=== PATIENT | female | born 1935 | race Caucasian/White ===

== ENCOUNTER 2021-02-05 20:37 | Emergency (ER) | payer MEDICARE ==
[2021-02-06 02:21] LABS: HEMOGLOBIN 15.3 gm/dl (12.3-15.3); RED BLOOD COUNT 4.71 M/UL (4.00-5.10); WHITE BLOOD COUNT 16.1 K/UL (4.5-11.0)
[2021-02-06 02:44] LABS: BUN/CREATININE RATIO 21 (0-10)
== END 2021-02-06 05:35 | disposition home or self-care (01) ==
LOC: ER1 20:37
PROVIDERS: Family Medicine
DX: E87.1 Hypo-osmolality and hyponatremia (principal); E11.9 Type 2 diabetes mellitus without complications; I10 Essential (primary) hypertension; Z88.2 Allergy status to sulfonamides; Z88.5 Allergy status to narcotic agent
CPT/HCPCS: 71046; 80053; 82550; 82553; 82962; 83874; 84484; 85025; 93005; 99285

== ENCOUNTER 2021-02-08 17:36 | Emergency (ER) | payer MEDICARE ==
[2021-02-08 19:13] LABS: HEMOGLOBIN 14.2 gm/dl (12.3-15.3); RED BLOOD COUNT 4.41 M/UL (4.00-5.10); WHITE BLOOD COUNT 12.5 K/UL (4.5-11.0)
[2021-02-08 19:32] LABS: BUN/CREATININE RATIO 33 (0-10)
== END 2021-02-08 20:14 | disposition home or self-care (01) ==
LOC: ER1 17:36
PROVIDERS: Physician Assistant
DX: I10 Essential (primary) hypertension (principal); E11.9 Type 2 diabetes mellitus without complications; E87.1 Hypo-osmolality and hyponatremia; Z88.5 Allergy status to narcotic agent; Z88.2 Allergy status to sulfonamides; Z88.8 Allergy status to other drugs, medicaments and biological substances; Z88.1 Allergy status to other antibiotic agents
CPT/HCPCS: 71045; 80053; 82550; 82553; 83874; 84484; 85025; 85610; 85730; 93005; 99284

== ENCOUNTER → 2021-02-13 | Outpatient (CLI) | payer MEDICARE | LOC: LAB 11:17 | PROVIDERS: Internal Medicine | DX: E87.1 Hypo-osmolality and hyponatremia (principal); I10 Essential (primary) hypertension; Z79.899 Other long term (current) drug therapy | CPT/HCPCS: 36415; 80048 ==

== ENCOUNTER → 2021-02-15 | Outpatient (CLI) | payer MEDICARE | LOC: LAB 16:16 | PROVIDERS: Internal Medicine | DX: E87.1 Hypo-osmolality and hyponatremia (principal) | CPT/HCPCS: 36415; 80048 ==

== ENCOUNTER → 2021-06-25 | Outpatient (CLI) | payer MEDICARE ==
[~2021-06-25] MED LIST: AMLODIPINE BESY10 MG PO; ATENOLOL50 MG PO; DECADRON6 MG PO; HYDROCHLOROTH12.5 MG PO; INSULIN ISOPHANE SQ; LANTUS INS100 UTS/M1 SQ; LEVOFLOXACIN500 MG PO; LOSARTAN POTAS100 MG PO; MEDROL4 MG PO; PRAVASTATIN SOD40 MG PO; TYLENOL EXTRA500 MG PO; [UNRECOGNIZED DRUG - OTHER] SQ
== END ==
LOC: KOH-I 15:28
DX: R50.9 Fever, unspecified (principal)
CPT/HCPCS: 71046

== ENCOUNTER 2021-06-26 19:29 | Inpatient (IN) | payer MEDICARE ==
[~2021-06-26] VITALS: Ht 162.6 cm; Wt 77.1 kg
[2021-06-26 20:27] LABS: HEMOGLOBIN 16.3 gm/dl (12.3-15.3); RED BLOOD COUNT 5.23 M/UL (4.00-5.10); WHITE BLOOD COUNT 6.2 K/UL (4.5-11.0)
[2021-06-27] MEDS ORDERED: LOSARTAN POTAS100 MG PO (10:54)
[2021-06-27] MEDS ORDERED: INSULIN ISOPHANE SQ ×2 (10:56)
[2021-06-27] MEDS ORDERED: PRAVASTATIN SOD40 MG PO (10:56)
[2021-06-27] MEDS ORDERED: [UNRECOGNIZED DRUG - OTHER] SQ ×2 (10:56)
[2021-06-27] MEDS ORDERED: AMLODIPINE BESY10 MG PO (10:57)
[2021-06-27] MEDS ORDERED: ATENOLOL50 MG PO (10:57)
[2021-06-27] MEDS ORDERED: HYDROCHLOROTH12.5 MG PO (10:58)
[2021-06-27] MEDS ORDERED: TYLENOL EXTRA500 MG PO (10:59)
[2021-06-27 15:29] LABS: WHITE BLOOD COUNT 5.3 K/UL (4.5-11.0)
[2021-06-27 16:19] LABS: HEMOGLOBIN 13.9 gm/dl (12.3-15.3); RED BLOOD COUNT 4.45 M/UL (4.00-5.10)
[2021-06-28 04:41] LABS: HEMOGLOBIN 13.2 gm/dl (12.3-15.3); RED BLOOD COUNT 4.27 M/UL (4.00-5.10); WHITE BLOOD COUNT 6.6 K/UL (4.5-11.0)
[2021-06-28] MEDS ORDERED: LEVOFLOXACIN500 MG PO (13:19)
[2021-06-28] MEDS ORDERED: MEDROL4 MG PO (13:19)
[2021-06-29 06:22] LABS: HEMOGLOBIN 14.3 gm/dl (12.3-15.3); RED BLOOD COUNT 4.6 M/UL (4.00-5.10); WHITE BLOOD COUNT 6.7 K/UL (4.5-11.0)
== END 2021-06-29 14:27 | disposition home or self-care (01) | DRG 177 ==
LOC: ER1 19:29 → CDU 23:40 → MED SURG 4 06-27 16:23
PROVIDERS: Internal Medicine; Physician Assistant Medical; ADMIT Internal Medicine
PROC: 8E0ZXY6 Isolation (ICD-10-PCS; 2021-06-27)
PROC: XW033E5 Introduction of Remdesivir Anti-infective into Peripheral Vein, Percutaneous Approach, New Technology Group 5 (ICD-10-PCS; principal; 2021-06-28)
PROC: 3E0333Z Introduction of Anti-inflammatory into Peripheral Vein, Percutaneous Approach (ICD-10-PCS; 2021-06-28)
DX: U07.1 COVID-19 (principal); J12.82 Pneumonia due to coronavirus disease 2019; G93.41 Metabolic encephalopathy; N17.9 Acute kidney failure, unspecified; E87.1 Hypo-osmolality and hyponatremia; N39.0 Urinary tract infection, site not specified; I10 Essential (primary) hypertension; E83.42 Hypomagnesemia; Z96.41 Presence of insulin pump (external) (internal); E87.6 Hypokalemia; E78.5 Hyperlipidemia, unspecified; Z88.6 Allergy status to analgesic agent; Z79.4 Long term (current) use of insulin
CPT/HCPCS: 36415; 70450; 71045; 71046; 80048; 80053; 81001; 82436; 82550; 82553; 82570; 82962; 83036; 83605; 83735; 83874; 83935; 84100; 84133; 84300; 84484; 85025; 85027; 86140; 87040; 87077; 87086; 87186; 93005; 94640; 94664; 94760; 96374; 99285; G0378; J0456; J0696; J1100; J1650; J3475; J3480; J7030; J7040; U0002

== ENCOUNTER 2021-07-02 12:53 | Inpatient (IN) | payer MEDICARE ==
[~2021-07-02] VITALS: Ht 170.2 cm; Wt 77.1 kg
[~2021-07-02 12:53] MED LIST changes: -DECADRON6 MG PO; -LANTUS INS100 UTS/M1 SQ
[2021-07-02 13:28] LABS: RED BLOOD COUNT 5.34 M/UL (4.00-5.10); WHITE BLOOD COUNT 11.8 K/UL (4.5-11.0)
[2021-07-02 13:29] LABS: HEMOGLOBIN 16.7 gm/dl (12.3-15.3)
[2021-07-02 13:51] LABS: BUN/CREATININE RATIO 29 (0-10)
[2021-07-03 03:57] LABS: HEMOGLOBIN 15.6 gm/dl (12.3-15.3); RED BLOOD COUNT 4.99 M/UL (4.00-5.10)
[2021-07-03 03:59] LABS: WHITE BLOOD COUNT 18.7 K/UL (4.5-11.0)
[2021-07-04 04:08] LABS: HEMOGLOBIN 14.9 gm/dl (12.3-15.3); RED BLOOD COUNT 4.74 M/UL (4.00-5.10); WHITE BLOOD COUNT 15.6 K/UL (4.5-11.0)
[2021-07-05 07:17] LABS: HEMOGLOBIN 15.1 gm/dl (12.3-15.3); RED BLOOD COUNT 4.88 M/UL (4.00-5.10); WHITE BLOOD COUNT 15.2 K/UL (4.5-11.0)
[2021-07-06 04:55] LABS: HEMOGLOBIN 14.7 gm/dl (12.3-15.3); RED BLOOD COUNT 4.69 M/UL (4.00-5.10); WHITE BLOOD COUNT 12.2 K/UL (4.5-11.0)
[2021-07-07 04:38] LABS: BUN/CREATININE RATIO 40 (0-10)
[2021-07-09 06:44] LABS: HEMOGLOBIN 14.5 gm/dl (12.3-15.3); RED BLOOD COUNT 4.67 M/UL (4.00-5.10)
[2021-07-10 05:03] LABS: HEMOGLOBIN 15.1 gm/dl (12.3-15.3); RED BLOOD COUNT 4.89 M/UL (4.00-5.10)
[2021-07-10 05:37] LABS: BUN/CREATININE RATIO 46 (0-10)
[2021-07-11] MEDS ORDERED: DECADRON6 MG PO (10:00)
[2021-07-11] MEDS ORDERED: LANTUS INS100 UTS/M1 SQ (10:03)
--- NOTE | 2021-07-11 12:27 | NUR ---
verified to dr. sutton if patient discharge status r/t high blood sugar and stated will continue to discharge patient
== END 2021-07-11 14:26 | DRG 177 ==
LOC: ER1 12:53 → CDU 23:46 → M/S 07-03 17:20
PROVIDERS: Internal Medicine; Internal Medicine Nephrology; Physician Assistant; Physician Assistant Medical; Student in an Organized Health Care Education/Training Program; ADMIT Internal Medicine
PROC: 3E0333Z Introduction of Anti-inflammatory into Peripheral Vein, Percutaneous Approach (ICD-10-PCS; principal; 2021-07-04)
PROC: 8E0ZXY6 Isolation (ICD-10-PCS; 2021-07-04)
DX: U07.1 COVID-19 (principal); J12.82 Pneumonia due to coronavirus disease 2019; J96.01 Acute respiratory failure with hypoxia; E87.1 Hypo-osmolality and hyponatremia; N17.9 Acute kidney failure, unspecified; N39.0 Urinary tract infection, site not specified; E11.9 Type 2 diabetes mellitus without complications; E78.5 Hyperlipidemia, unspecified; E86.0 Dehydration; I10 Essential (primary) hypertension; Z88.2 Allergy status to sulfonamides; Z88.5 Allergy status to narcotic agent; Z88.8 Allergy status to other drugs, medicaments and biological substances
CPT/HCPCS: 36415; 70450; 71045; 80048; 80053; 81001; 82436; 82533; 82550; 82553; 82962; 83735; 83874; 84100; 84133; 84300; 84439; 84443; 84484; 85025; 85027; 86140; 87086; 93005; 94760; 96372; 96374; 96375; 96376; 97110; 97110-GP-CQ; 97116; 97116-GP-CQ; 97162; 97166; 97530; 97530-GP-CQ; 97535; 99285; G0378; J0696; J1100; J1650; J7030; J7040

== ENCOUNTER → 2021-11-07 | Outpatient (CLI) | payer MEDICARE ==
[~2021-11-07] MED LIST changes: +DECADRON6 MG PO; +LANTUS INS100 UTS/M1 SQ
== END ==
LOC: KOH-I 11:57
DX: R05.9 Cough, unspecified (principal)
CPT/HCPCS: 71046

== ENCOUNTER → 2021-11-12 | Outpatient (CLI) | payer MEDICARE ==
[2021-11-12 16:03] LABS: BORDETELLA PARAPERTUSSIS Not Detected (Not Detectd); BORDETELLA PERTUSSIS Not Detected (Not Detectd); CHLAMYDIA PNEUMONIAE Not Detected (Not Detectd); CORONAVIRUS HKU1 Not Detected (Not Detectd); CORONAVIRUS NL63 Not Detected (Not Detectd); CORONAVIRUS OC43 Not Detected (Not Detectd); CORONOAVIRUS 229E Not Detected (Not Detectd); HUMAN RHINOVIRUS/ENTEROVIRUS Not Detected (Not Detectd); INFLUENZA A Not Detected (Not Detectd); INFLUENZA B Not Detected (Not Detectd); MYCOPLASMA PNEUMONIAE Not Detected (Not Detectd); PARAINFLUENZA VIRUS 1 Not Detected (Not Detectd); PARAINFLUENZA VIRUS 2 Not Detected (Not Detectd); PARAINFLUENZA VIRUS 3 Not Detected (Not Detectd); PARAINFLUENZA VIRUS 4 Not Detected (Not Detectd); RESPIRATORY SYNCYTIAL VIRUS Not Detected (Not Detectd)
[2021-11-12 17:00] LABS: HUMAN METAPNEUMOVIRUS DETECTED (Not Detectd); SARS-CoV-2 NOT DETECTED (Not Detectd)
== END ==
LOC: LAB 14:40
PROVIDERS: Internal Medicine
DX: J06.9 Acute upper respiratory infection, unspecified (principal); Z20.822 Contact with and (suspected) exposure to COVID-19
CPT/HCPCS: 36415; 87633

== ENCOUNTER → 2022-01-08 | Outpatient (CLI) | payer MEDICARE | LOC: KOH-I 09:09 | DX: R05.9 Cough, unspecified (principal) | CPT/HCPCS: 71046 ==

== ENCOUNTER → 2022-05-01 | Outpatient (CLI) | payer MEDICARE | LOC: EXRD 10:47 | DX: N17.9 Acute kidney failure, unspecified (principal) | CPT/HCPCS: 76775 ==